=== PATIENT | male | born 1965 | race Caucasian/White ===

== ENCOUNTER 2020-01-20 06:47 | Emergency (ER) | payer SELFPAY ==
[~2020-01-20] VITALS: Ht 177.8 cm; Wt 95.2 kg
--- NOTE | 2020-01-20 07:16 | ECGEPIP ---
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
[2020-01-20] MEDS: METOPROLOL 5 MG/5 ML VIAL IV SCH ×3 (07:44→08:12)
--- NOTE | 2020-01-20 07:50 | REP ---
Portable chest x-ray: Single view. History: Chest pain. No comparison study. Findings: Monitoring electrodes are seen. The lungs are symmetrically aerated. No infiltrate is seen. Pleural angles are sharp. Cardiomediastinal silhouette is unremarkable. Impression: No acute disease seen. Electronically Signed by Joseph Colorado MD 01/20/2020 07:42 A
[2020-01-20 07:52] LABS: BASO % 0.7 % (0.0-1.0); EOS # 0.1 10^3/uL (0.0-0.5); EOS % 1.2 % (0.0-3.0); HEMATOCRIT 46.9 % (42.0-52.0); HEMOGLOBIN 15.7 g/dl (13.5-17.5); LYMPH # 1.4 10^3/uL (1.5-5.0); LYMPH % 33.5 % (24.0-44.0); MEAN CORPUSCULAR HEMOGLOBIN 28.6 pg (27.0-33.0); MEAN CORPUSCULAR HGB CONC 33.5 g/dl (32.0-36.5); MEAN CORPUSCULAR VOLUME 85.6 fl (80.0-96.0); MONO # 0.3 10^3/uL (0.0-0.8); MONO % 7.4 % (0.0-5.0); NEUTROPHILS # 2.5 10^3/uL (1.5-8.5); PLATELET COUNT, AUTOMATED 225 10^3/uL (150-450); RED BLOOD COUNT 5.48 10^6/uL (4.30-6.10); WHITE BLOOD COUNT 4.3 10^3/uL (4.0-10.0)
[2020-01-20] MEDS ORDERED: METO50TA7 PO (07:56)
[2020-01-20 08:12] VITALS: BP 110/73
[2020-01-20 08:22] LABS: BLOOD UREA NITROGEN 16 MG/DL (7-18); CALCIUM LEVEL 9.1 MG/DL (8.5-10.1); CARBON DIOXIDE LEVEL 29 MEQ/L (21-32); CHLORIDE LEVEL 109 MEQ/L (98-107); CK-MB VALUE MASS 1.3 NG/ML (<3.6); CPK CREATINE PHOSPHOKINASE 159 U/L (39-308); CREATININE FOR GFR 0.93 MG/DL (0.70-1.30); FREE THYROXINE INDEX 3.3 % (1.4-3.8); GLOMERULAR FILTRATION RATE > 60.0 (>56); GLUCOSE, FASTING 93 MG/DL (70-100); MAGNESIUM LEVEL 2.3 MG/DL (1.8-2.4); MB/CK RELATIVE INDEX 0.82 (< OR =4); POTASSIUM SERUM 4.2 MEQ/L (3.5-5.1); SODIUM LEVEL 141 MEQ/L (136-145); T UPTAKE 32 % (33-40); THYROXINE (T4) 10.2 UG/DL (4.5-12.0); TROPONIN I < 0.02 NG/ML (< 0.10)
[2020-01-20] MEDS ORDERED: AMIODARONE HCL 150 MG in IV 1 EA IV STA ×2 (08:55→09:58)
[2020-01-20] MEDS ORDERED: ASPIRIN 81 MG CHEW TABLET PO ONE (09:00)
[2020-01-20 09:02] LABS: NT-PRO BNP 52 PG/ML (<125)
[2020-01-20] MEDS ORDERED: ASPI81TA85 PO (09:33)
[2020-01-20 11:45] VITALS: BP 105/66
[2020-01-20] MEDS ORDERED: LOPR1TAB6 PO (11:45)
[2020-01-20] MEDS ORDERED: AMIODARONE 200 MG TAB (PACERONE) PO ONE (11:45)
== END 2020-01-20 11:52 | disposition home or self-care (01) ==
LOC: M ED 06:47
DX: I48.0 Paroxysmal atrial fibrillation (principal); Z79.82 Long term (current) use of aspirin; Z79.899 Other long term (current) drug therapy
CPT/HCPCS: 71045; 80048; 82550; 82553; 83735; 83880; 84436; 84443; 84479; 84484; 85025; 93005; 93041; 94760; 96374; 96375; 96376; 99285; J0282

== ENCOUNTER 2020-01-21 08:25 | Emergency (ER) | payer SELFPAY ==
[~2020-01-21] VITALS: Ht 177.8 cm; Wt 95.5 kg
[2020-01-21 08:25] VITALS: BP 131/77
[~2020-01-21 08:25] MED LIST: ASPI81TA85 PO; LOPR1TAB6 PO; METO50TA7 PO
--- NOTE | 2020-01-22 18:28 | ECGEPIP ---
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
== END 2020-01-21 09:20 | disposition home or self-care (01) ==
LOC: M ED 08:25
DX: Z86.79 Personal history of other diseases of the circulatory system (principal); R00.1 Bradycardia, unspecified; F41.0 Panic disorder [episodic paroxysmal anxiety]; Z79.82 Long term (current) use of aspirin; Z79.899 Other long term (current) drug therapy